=== PATIENT | female | born 1940 | race Caucasian/White ===

== ENCOUNTER 2017-08-13 11:28 | Emergency (ER) | payer MEDICARE, OTHER ==
[~2017-08-13] VITALS: Ht 162.6 cm; Wt 97.0 kg
[~2017-08-13 11:28] MED LIST: CALC600T34 PO; HUMIRA PEN SC; LEVO25TA36 PO; PRIN20TA2 PO; ROSU5 PO; TYLE650T4 PO; [UNRECOGNIZED DRUG - OTHER]
[2017-08-13 11:34] VITALS: BP_SYST 214; BP_SYST 220; BP_DIAS 94; BP_DIAS 97; PULSE 85; RESP 15; TEMP 98.8; O2SAT 95
[2017-08-13] MEDS ORDERED: ATOR10TA15 PO (11:57)
[2017-08-13] MEDS ORDERED: HUMI40KI SQ (11:57)
[2017-08-13] MEDS ORDERED: ALLO100T PO (11:57)
[2017-08-13] MEDS ORDERED: Fish oil PO (11:57)
[2017-08-13] MEDS ORDERED: LISI40TA PO (11:57)
[2017-08-13] MEDS ORDERED: SYNT25TA PO (11:57)
[2017-08-13] MEDS ORDERED: ACETAMINOPHEN 325 MG TAB PO ONE (12:15)
[2017-08-13] MEDS ORDERED: TETANUS/DIPHTHERIA TOXOID ADULT 0.5 ML VIAL IM ONE (12:15)
--- NOTE | 2017-08-13 12:44 | RADRPT ---
EXAM DATE/TIME: 08/13/2017 12:29 [facility] COMPARISON: No previous studies available for comparison. INDICATIONS : Trauma. Fell and hit forehead. Left forehead contusion. RADIATION DOSE: 54.49 CTDIvol (mGy) MEDICAL HISTORY : Hypertension. SURGICAL HISTORY : Hysterectomy. Cholecystectomy. ENCOUNTER: Initial ACUITY: 1 day PAIN SCALE: 4/10 LOCATION: Left frontal TECHNIQUE: Multiple contiguous axial images were obtained of the head. Using automated exposure control and adj ustment of the mA and/or kV according to patient size, radiation dose was kept as low as reasonably a chievable to obtain optimal diagnostic quality images. DICOM format image data is available electro nically for review and comparison. FINDINGS: CEREBRUM: The ventricles are normal for age. No evidence of midline shift, mass lesion, hemorrhage or acute in farction. No extra-axial fluid collections are seen. POSTERIOR FOSSA: The cerebellum and brainstem are intact. The 4th ventricle is midline. The cerebellopontine angle i s unremarkable. EXTRACRANIAL: The visualized portion of the orbits is intact. SKULL: The calvaria is intact. Soft tissue swelling or focal bone, No evidence of skull fracture. CONCLUSION: Intracranial contents are unremarkable. Dylan Mcleod MD FACR on August 13, 2017 at 12:41 Board Certified Radiologist. This report was verified electronically.
[2017-08-13 12:50] VITALS: BP 182/95; PULSE 78; RESP 16; O2SAT 95
--- NOTE | 2017-08-13 13:03 | PD ---
HPI Chief Complaint: Fall Time Seen by Provider: 11:40 Travel History International Travel<30 days: No Contact w/Intl Traveler<30days: No Traveled to known affect area: No History of Present Illness HPI 76-year-old female came to the emergency room after a trip and fall about an hour prior to coming here. Patient was walking when she didn't see the curb and tripped and fell forward. She tried to brace her fall by outstretching both arms. However she did in the feeding her head. Currently she has some bruises developing on both palms and the forehead. She has grazed her left knee and right perez. No significant laceration and no uncontrolled bleeding. Patient never lost consciousness. No neck pain. She is not on any blood thinners. She is awake and answering questions appropriately. No out of proportion pain. PFSH Past Medical History Narrative Medical List of her past medical, surgical, social and family history is reviewed from the nursing note. 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) Hiatal Hernia: No Hypertension: Yes Medical other: Yes (Eczema, psoriasis) Musculoskeletal: Yes (Osteoporosis ) Thyroid Disease: Yes (Hypo-) Tetanus Vaccination: Unknown Influenza Vaccination: Yes ?: Not Menopausal: Yes Past Surgical History Abdominal Surgery: Yes ([facility]) Cholecystectomy: Yes Gynecologic Surgery: Yes (HYSTERECTOMY,TL) Hysterectomy: Yes Social History Alcohol Use: Yes (Socially) Tobacco Use: No Substance Use: No Allergies-Medications (Allergen,Severity, Reaction): Coded Allergies: NSAIDS (Non-Steroidal Anti-Inflamma (Verified Allergy, Severe, Rash, ) colchicine (Unverified Adverse Reaction, Severe, N/V, 08/13/17) Comments List of her allergies reviewed from the nursing note. Reported Meds & Prescriptions Reported Meds & Active Scripts Active Reported Fish Oil 1000 mg ([place]-3 Fatty Acids) 300 Mg-1,000 Mg Cap 1,000 Mg PO BID Allopurinol 100 Mg Tab 100 Mg PO BID Humira 2-Pack Inj (Adalimumab 2-Pack Inj) 40 Mg/0.8 Ml Syr 40 Mg SQ Q14D Atorvastatin (Atorvastatin Calcium) 10 Mg Tab 10 Mg PO HS Synthroid (Levothyroxine Sodium) 25 Mcg Tab 25 Mcg PO DAILY Lisinopril 40 Mg Tab 40 Mg PO DAILY Narrative Medication Most of her home medications reviewed from the nursing note. Review of Systems Except as stated in HPI: all other systems reviewed are Neg Physical Exam Narrative GENERAL: Awake, alert, obese, mild distress SKIN: Focused skin assessment warm/dry. Multiple superficial abrasions on both wrists and lower extremity. No obvious bleeding HEAD: Forehead contusion with some swelling EYES: Pupils equal and round. No scleral icterus. No injection or drainage. ENT: No nasal bleeding or discharge. Mucous membranes pink and moist. NECK: Trachea midline. No JVD. CARDIOVASCULAR: Regular rate and rhythm. No murmur appreciated. RESPIRATORY: No accessory muscle use. Clear to auscultation. Breath sounds equal bilaterally. GASTROINTESTINAL: Abdomen soft, non-tender, nondistended. Hepatic and splenic margins not palpable. MUSCULOSKELETAL: No obvious deformities. No clubbing. No cyanosis. No edema. No anatomical snuff box tenderness NEUROLOGICAL: Awake and alert. No obvious cranial nerve deficits. Motor grossly within normal limits. Normal speech. PSYCHIATRIC: Appropriate mood and affect; insight and judgment normal. Data Data Last Documented VS Orders Orders Ct Brain W/O Iv Contrast(Rout) (08/13/17 ) Wrist, Complete ([id number]) (08/13/17 ) Tetanus/Diphtheria Tox Adult (Tetanus/Di (08/13/17 12:15) Acetaminophen (Tylenol) (08/13/17 12:15) MDM Medical Decision Making Medical Screen Exam Complete: Yes Emergency Medical Condition: Yes Medical Record Reviewed: Yes Differential Diagnosis Intracranial bleed, wrist fracture, contusion, wrist strain Narrative Course 1:35 PM CAT scan and x-ray were within normal limit. Patient was given Tylenol for pain. I'm comfortable discharging her home. Patient's tetanus was updated. Procedures EKG Prior to Arrival: No Diagnosis Primary Impression: Fall Qualified Codes: W19.XXXA - Unspecified fall, initial encounter Additional Impressions: Facial contusion Qualified Codes: S00.83XA - Contusion of other part of head, initial encounter Wrist strain Qualified Codes: S66.911A - Strain of unspecified muscle, fascia and tendon at wrist and hand level, right hand, initial encounter Referrals: Primary Care Physician Additional Instructions: Please return to the ER if the condition worsens or any other new concerns. You can take Tylenol for headache or other aches. Apply ice compress to the area that is sore and swollen. Follow-up with her primary care. Med/Other Pt SpecificInfo: No Change to Meds Disposition: 01 DISCHARGE HOME Condition: Stable Derian Payne MD Aug 13, 2017 13:03
[2017-08-13 13:20] VITALS: RESP 16
--- NOTE | 2017-08-13 13:20 | RADRPT ---
EXAM DATE/TIME: 08/13/2017 12:15 [facility] COMPARISON: No previous studies available for comparison. INDICATIONS : Right wrist pain post fall. MEDICAL HISTORY : Arthritis SURGICAL HISTORY : None. ENCOUNTER: Initial ACUITY: 1 day PAIN SCORE: 2/10 LOCATION: Right entire wrist FINDINGS: Degenerative changes are noted. Alignment is anatomic. Fracture is not appreciated. Degenerative changes are seen also at the first carpal metacarpal joint. There is sclerosis of the l unate with some lunate cysts. CONCLUSION: 1. Negative for fracture. 2. Moderate degenerative changes. Dylan Mcleod MD FACR on August 13, 2017 at 12:40 Board Certified Radiologist. This report was verified electronically.
[2017-08-16] MEDS ORDERED: FISH100020 PO (10:34)
== END 2017-08-13 13:35 | disposition home or self-care (01) ==
LOC: PHED 11:28
DX: S80.212A Abrasion, left knee, initial encounter (principal); S00.83XA Contusion of other part of head, initial encounter; W01.0XXA Fall on same level from slipping, tripping and stumbling without subsequent striking against object, initial encounter; I10 Essential (primary) hypertension; E78.00 Pure hypercholesterolemia, unspecified; M10.9 Gout, unspecified; M81.0 Age-related osteoporosis without current pathological fracture; Z90.49 Acquired absence of other specified parts of digestive tract
CPT/HCPCS: 70450; 73110; 90471; 90714